=== PATIENT | female | born 1940 | race Caucasian/White ===

== ENCOUNTER 2024-07-12 16:31 | Outpatient (CLI) | payer MEDICARE, SELFPAY | END 2024-07-12 16:32 | disposition home or self-care (01) | LOC: AMB 08-07 03:33 | PROVIDERS: PCP Physician Assistant; Visit Provider Family Medicine | DX: I31.39 Other pericardial effusion (noninflammatory) (principal); R06.02 Shortness of breath | CPT/HCPCS: A0425; A0434 ==